=== PATIENT | male | born 1960 | race Caucasian/White ===

== ENCOUNTER 2021-07-27 08:55 | Day surgery (SDC) | payer BC, OTHER ==
[2021-07-25 14:31] VITALS: BMI 39.9
[~2021-07-27 08:55] MED LIST: LACTATED RINGERS 1,000 ML IV SCH
[2021-07-27 09:24] VITALS: TEMP 97.8
[2021-07-27] MEDS ORDERED: LACTATED RINGERS 1,000 ML IV ONE (09:32)
[2021-07-27] MEDS ORDERED: PROPOFOL 10 MG/ML 20 ML VIAL IV ONE (10:16)
[2021-07-27] MEDS ORDERED: LIDOCAINE 1% INJ 10MG/ML (20 ML MDV) ONE (10:16)
--- NOTE | 2021-07-27 10:47 | P.PCN ---
Date of Procedure: 07/27/21 Procedure(s) Performed: BRIEF HISTORY: Patient is a 61-year-old pleasant male scheduled for an elective colonoscopy as a part of screening for colorectal neoplasia. PROCEDURE PERFORMED: Colonoscopy with snare polypectomy. PREOPERATIVE DIAGNOSIS: Screening for colon cancer. IV sedation per Anesthesia. PROCEDURE: After informed consent was obtained, the patient, was brought into the endoscopy unit. IV sedation was administered by Anesthesia under continuous monitoring. Digital rectal examination was normal. Initially the Olympus CF-160 flexible video colonoscope was then inserted in the rectum, gradually advanced into the cecum without any difficulty. Careful examination was performed as the scope was gradually being withdrawn. Ileocecal valve and the appendiceal orifice were visualized and appeared normal. Prep was excellent. Mucosa of the cecum, ascending colon, appeared normal. The transverse colon there was a 7 mm polyp that was removed by snare polypectomy. In the descending colon there was a 1 cm sessile polyp removed by snare polypectomy. Rest of the transverse colon, descending colon, sigmoid colon, and rectum appeared normal. Retroflexion was performed in the rectum and no lesions were seen. The patient tolerated the procedure well. IMPRESSION: 7 mm transverse colon polyp status post polypectomy 1 cm descending colon polyp status post polypectomy RECOMMENDATIONS: Findings of this examination were discussed with the patient as his family. He was advised to follow with the biopsy results. If the biopsies adenoma he can have a repeat colonoscopy in 3 years..
[2021-07-27 11:21] VITALS: PULSE 67; RESP 16
[2021-07-27 11:22] VITALS: BP 116/72
== END 2021-07-27 11:25 | disposition home or self-care (01) ==
LOC: ORWHC2ENDO 08:55
PROVIDERS: ATTEND Internal Medicine Gastroenterology
DX: Z12.11 Encounter for screening for malignant neoplasm of colon (principal); D12.3 Benign neoplasm of transverse colon; D12.4 Benign neoplasm of descending colon
CPT/HCPCS: 45385; 88305; J2001; J2704

== ENCOUNTER → 2023-05-30 | Outpatient (CLI) | payer BC ==
[2023-05-30 14:38] LABS: ALT 292 U/L (10-49); AST 210 U/L (14-35); Albumin 4.5 g/dL (3.8-4.9); Albumin/Globulin Ratio 2.14 Ratio (1.60-3.17); Alkaline Phosphatase 55 U/L (41-126); BUN/Creat Ratio 19.56 Ratio (12.00-20.00); Blood Urea Nitrogen 17.6 mg/dL (9.0-27.0); Calcium 9.6 mg/dL (8.7-10.3); Carbon Dioxide 27.4 mmol/L (21.6-31.8); Chloride 102 mmol/L (96-109); Globulin 2.1 g/dL (1.6-3.3); Glucose 134 mg/dL (70-110); Potassium 4.3 mmol/L (3.5-5.5); Sodium 140 mmol/L (135-145); Total Bilirubin 0.6 mg/dL (0.3-1.2); Total Protein 6.6 g/dL (6.2-8.2)
[2023-05-30 14:58] LABS: INR 4.32 sec (0.93-1.11); Prothrombin Time 42.4 sec (9.9-11.9)
== END | disposition home or self-care (01) ==
LOC: LABWHC1 10:35
PROVIDERS: ATTEND Internal Medicine
DX: I35.0 Nonrheumatic aortic (valve) stenosis (principal); J30.89 Other allergic rhinitis
CPT/HCPCS: 36415; 80053; 85610; 86001

== ENCOUNTER → 2023-06-04 | Outpatient (CLI) | payer BC ==
--- NOTE | 2023-06-04 11:03 | US ---
EXAMINATION TYPE: US abdomen complete DATE OF EXAM: 06/04/2023 COMPARISON: NONE CLINICAL INDICATION: Male, 62 years old with history of R74.01 ELEVATED LFT; Abnormal labs. No pain. Hx CAD. TECHNIQUE: Multiple sonographic images of the abdomen are obtained. FINDINGS: EXAM MEASUREMENTS: Liver Length: 16.5 cm Gallbladder Wall: 0.2 cm Spleen: 10.5 cm Right Kidney: 12.2 x 6.0 x 5.4 cm Left Kidney: 12.3 x 5.8 x 5.8 cm COVER CUTTER NOTES: Limited due to overlying bowel gas Pancreas: Head and tail obscured by overlying bowel gas. The visualized body shows no gross abnormal ity. Liver: Increased attenuation, decreased visualization of vessels suggestive of fatty infiltrate. Ec hogenic in appearance. Gallbladder: No stones or wall thickening Evidence for sonographic Carrera's sign: neg CBD: Obscured by overlying bowel gas Spleen: wnl Right Kidney: No hydronephrosis or masses seen Left Kidney: No hydronephrosis or masses seen Upper IVC: wnl Abd Aorta: No AAA visualized at portions seen IMPRESSION: 1. Exam limitations due to bowel gas. The head and tail of the pancreas are obscured. The bile duct i s also obscured and not assessed on this exam. 2. At least moderate hepatic steatosis. Correlate with LFTs, lipid profile, and patient risk factors. 3. No gallstones.
[2023-06-04 15:11] LABS: % Iron Saturation 21.24 (15.00-50.00); ALT 85 U/L (10-49); AST 48 U/L (14-35); Albumin 4.5 g/dL (3.8-4.9); Albumin/Globulin Ratio 2.14 Ratio (1.60-3.17); Alkaline Phosphatase 59 U/L (41-126); BUN/Creat Ratio 20.44 Ratio (12.00-20.00); Bilirubin, Conjugated 0.21 mg/dL (0.20-0.40); Bilirubin,Unconjugated 0.59 mg/dL (0.20-1.00); Blood Urea Nitrogen 18.4 mg/dL (9.0-27.0); Calcium 9.5 mg/dL (8.7-10.3); Carbon Dioxide 27.4 mmol/L (21.6-31.8); Chloride 104 mmol/L (96-109); Globulin 2.1 g/dL (1.6-3.3); Glucose 127 mg/dL (70-110); Iron 79 UG/DL (65-175); Potassium 4.9 mmol/L (3.5-5.5); Sodium 141 mmol/L (135-145); Total Bilirubin 0.8 mg/dL (0.3-1.2); Total Iron Binding Capacity 372 UG/DL (228-460); Total Protein 6.6 g/dL (6.2-8.2)
[2023-06-04 16:38] LABS: Hepatitis A Antibody IgM Nonreactive; Hepatitis B Core IgM Nonreactive; Hepatitis B Surface Antigen Nonreactive; Hepatitis C IgG Antibody Nonreactive
[2023-06-04 19:28] LABS: INR 3.19 sec (0.93-1.11); Prothrombin Time 31.9 sec (9.9-11.9)
[2023-06-05 04:59] LABS: EBV - VCA IgM <10.0 U/mL (<36.0)
[2023-06-05 11:15] LABS: Smooth Muscle Antibody 8 UNITS (<20)
== END | disposition home or self-care (01) ==
LOC: RADUSWWP 09:35
PROVIDERS: ATTEND Internal Medicine
DX: I35.0 Nonrheumatic aortic (valve) stenosis (principal); K76.0 Fatty (change of) liver, not elsewhere classified; R74.01 Elevation of levels of liver transaminase levels; R14.3 Flatulence
CPT/HCPCS: 36415; 76700; 80053; 80074; 82103; 82248; 82390; 82525; 83516; 83540; 83550; 85610; 86038; 86645; 86665

== ENCOUNTER → 2023-06-19 | Outpatient (CLI) | payer BC ==
[2023-06-19 15:34] LABS: % Iron Saturation 17.43 (15.00-50.00); ALT 46 U/L (10-49); AST 44 U/L (14-35); Albumin 4.4 g/dL (3.8-4.9); Alkaline Phosphatase 58 U/L (41-126); Bilirubin, Conjugated <0.20 mg/dL (0.20-0.40); Bilirubin,Unconjugated >0.40 mg/dL (0.20-1.00); Blood Urea Nitrogen 19.6 mg/dL (9.0-27.0); Calcium 9.2 mg/dL (8.7-10.3); Carbon Dioxide 27.3 mmol/L (21.6-31.8); Chloride 103 mmol/L (96-109); Globulin 2.2 g/dL (1.6-3.3); Glucose 118 mg/dL (70-110); Iron 61 UG/DL (65-175); Potassium 4.3 mmol/L (3.5-5.5); Sodium 140 mmol/L (135-145); Total Bilirubin 0.6 mg/dL (0.3-1.2); Total Iron Binding Capacity 350 UG/DL (228-460); Total Protein 6.6 g/dL (6.2-8.2)
[2023-06-19 17:35] LABS: Hepatitis A Antibody IgM Nonreactive; Hepatitis B Core IgM Nonreactive; Hepatitis B Surface Antigen Nonreactive; Hepatitis C IgG Antibody Nonreactive
[2023-06-19 17:46] LABS: Ceruloplasmin 24.8 mg/dL (20.0-60.0)
[2023-06-19 17:52] LABS: INR 4.27 sec (0.93-1.11); Prothrombin Time 41.9 sec (9.9-11.9)
[2023-06-20 03:56] LABS: EBV - VCA IgM <10.0 U/mL (<36.0)
[2023-06-20 11:56] LABS: Alpha Lactalbumin IgE Class CLASS 0
[2023-06-20 14:34] LABS: Smooth Muscle Antibody 8 UNITS (<20)
== END | disposition home or self-care (01) ==
LOC: LABWHC1 11:07
PROVIDERS: ATTEND Internal Medicine
DX: I35.0 Nonrheumatic aortic (valve) stenosis (principal); R74.01 Elevation of levels of liver transaminase levels
CPT/HCPCS: 36415; 80053; 80074; 82103; 82248; 82390; 82525; 82728; 83516; 83540; 83550; 85610; 86003; 86038; 86645; 86665

== ENCOUNTER → 2023-07-02 | Outpatient (CLI) | payer BC ==
[2023-07-03 03:48] LABS: ALT 43 U/L (10-49); AST 43 U/L (14-35); Albumin 4.3 g/dL (3.8-4.9); Albumin/Globulin Ratio 1.95 Ratio (1.60-3.17); Alkaline Phosphatase 64 U/L (41-126); Blood Urea Nitrogen 18.8 mg/dL (9.0-27.0); Calcium 9.7 mg/dL (8.7-10.3); Chloride 101 mmol/L (96-109); Globulin 2.2 g/dL (1.6-3.3); Glucose 144 mg/dL (70-110); Potassium 4.5 mmol/L (3.5-5.5); Sodium 140 mmol/L (135-145); Total Bilirubin 0.7 mg/dL (0.3-1.2); Total Protein 6.5 g/dL (6.2-8.2)
[2023-07-03 04:59] LABS: INR 4.15 sec (0.93-1.11); Prothrombin Time 40.8 sec (9.9-11.9)
== END | disposition home or self-care (01) ==
LOC: LABWHC1 12:41
PROVIDERS: ATTEND Internal Medicine
DX: I35.0 Nonrheumatic aortic (valve) stenosis (principal)
CPT/HCPCS: 36415; 80053; 85610

== ENCOUNTER → 2023-07-25 | Outpatient (CLI) | payer BC ==
[2023-07-25 19:12] LABS: INR 3.48 sec (0.93-1.11); Prothrombin Time 34.6 sec (9.9-11.9)
== END | disposition home or self-care (01) ==
LOC: LABWHC1 13:17
PROVIDERS: ATTEND Internal Medicine
DX: I35.0 Nonrheumatic aortic (valve) stenosis (principal)
CPT/HCPCS: 36415; 85610

== ENCOUNTER → 2023-08-08 | Outpatient (CLI) | payer BC ==
[2023-08-08 21:28] LABS: INR 5.82 sec (0.93-1.11)
== END | disposition home or self-care (01) ==
LOC: LABWHC1 13:41
PROVIDERS: ATTEND Family Medicine
DX: Z95.2 Presence of prosthetic heart valve (principal)
CPT/HCPCS: 36415; 85610

== ENCOUNTER → 2023-10-06 | Outpatient (CLI) | payer BC ==
[2023-10-06 10:39] LABS: INR 2.5 (<1.2); Partial Thromboplastin Time 33.8 sec (22.0-30.0); Prothrombin Time 25.1 sec (10.0-12.5)
[2023-10-06 15:18] LABS: Basophils # (A) 0.05 X 10*3/uL (0.00-0.10); Basophils % (A) 1.3 %; Eosinophils # (A) 0.22 X 10*3/uL (0.04-0.35); Eosinophils % (A) 5.9 %; HCT 49.7 % (39.6-50.0); HGB 16.4 g/dL (13.0-17.0); Immature Grans, Automated 0 %; Lymphocytes # (A) 1.27 X 10*3/uL (0.90-5.00); Lymphocytes % (A) 33.8 %; MCH 30.3 pg (27.0-32.0); MCV 91.9 FL (80.0-97.0); Mean Platelet Volume 9.9 FL (9.5-12.2); Monocytes # (A) 0.33 X 10*3/uL (0.20-1.00); Monocytes % (A) 8.8 %; NRBC Per 100 WBC 0 X 10*3/uL (0.00-0.01); Neutrophils # (A) 1.89 X 10*3/uL (1.80-7.70); Neutrophils % (A) 50.2 %; Platelet Count 190 X 10*3/uL (140-440); RBC 5.41 X 10*6/uL (4.40-5.60); RDW 13.4 % (11.5-14.5); WBC 3.76 X 10*3/uL (4.50-10.00)
[2023-10-06 15:57] LABS: BUN/Creat Ratio 15.88 Ratio (12.00-20.00); Blood Urea Nitrogen 12.7 mg/dL (9.0-27.0); Carbon Dioxide 25.5 mmol/L (21.6-31.8); Chloride 105 mmol/L (96-109); Chol/HDL Ratio 6.28 Ratio; Glucose 147 mg/dL (70-110); LDL Cholesterol,Calculated 170.9 mg/dL (0.0-131.0); Magnesium 2.1 mg/dL (1.5-2.4); Potassium 4.7 mmol/L (3.5-5.5); Sodium 143 mmol/L (135-145)
[2023-10-06 15:58] LABS: ALT 24 U/L (10-49); AST 40 U/L (14-35); Albumin 4.5 g/dL (3.8-4.9); Albumin/Globulin Ratio 2.14 Ratio (1.60-3.17); Alkaline Phosphatase 53 U/L (41-126); Calcium 9.3 mg/dL (8.7-10.3); Globulin 2.1 g/dL (1.6-3.3); Total Bilirubin 0.7 mg/dL (0.3-1.2); Total Protein 6.6 g/dL (6.2-8.2)
== END | disposition home or self-care (01) ==
LOC: LABWHC1 09:21
PROVIDERS: ATTEND Internal Medicine
DX: Z00.00 Encounter for general adult medical examination without abnormal findings (principal); Z13.89 Encounter for screening for other disorder; I50.9 Heart failure, unspecified; R73.9 Hyperglycemia, unspecified; Z95.2 Presence of prosthetic heart valve
CPT/HCPCS: 36415; 80053; 80061; 83036; 83735; 84443; 85025; 85610; 85730; 87086

== ENCOUNTER → 2023-12-15 | Outpatient (CLI) | payer BC ==
--- NOTE | 2023-12-15 15:56 | XR ---
EXAMINATION TYPE: XR knee 4V RT DATE OF EXAM: 12/15/2023 2:52 PM CLINICAL INDICATION:Male, 63 years old with history of M17.10 UNILATERAL PRIMARY OSTEOARTHRITIS, UNSP ECIF; PHH COMPARISON: None. TECHNIQUE: XR knee 4V RT; examined in Frontal, lateral and oblique projections. [place] patellar perf ormed as well. FINDINGS: No evidence of any acute osseous pathology, soft tissue swelling, or joint effusion is no eba. Tricompartmental osteophyte formation involving the femoral condyles, tibial plateau and patella . Mild joint space narrowing. A fabella is present. IMPRESSION: 1. No acute osseous pathology. 2. [id number] tricompartmental osteoarthritic changes.
== END | disposition home or self-care (01) ==
LOC: RADXRMAIN 14:21
PROVIDERS: ATTEND Internal Medicine
DX: M17.11 Unilateral primary osteoarthritis, right knee (principal)

== ENCOUNTER → 2023-12-18 | Outpatient (CLI) | payer BC ==
--- NOTE | 2023-12-18 16:05 | US ---
EXAMINATION TYPE: US kidneys/renal and bladder DATE OF EXAM: 12/18/2023 COMPARISON: 06/04/23 abdomen comp CLINICAL INDICATION: Male, 63 years old with history of R30.0 DYSURIA; EXAM MEASUREMENTS: Right Kidney: 12.4 x 5.4 x 6.7 cm Left Kidney: 13.3 x 5.5 x 5.3 cm Right Kidney: No hydronephrosis , nephrolithiasis or masses seen Left Kidney: No hydronephrosis, nephrolithiasis or masses seen Bladder: Anechoic; 148ml Bilateral Jets seen: No There is no evidence for hydronephrosis at this point in time. No nephrolithiasis is seen. No kris s are identified. The urinary bladder is anechoic. Bilateral ureteral jets are seen. Renal cortical thickness and echogenicity are maintained. IMPRESSION: No hydronephrosis or nephrolithiasis.
== END | disposition home or self-care (01) ==
LOC: RADUSWWP 15:42
PROVIDERS: ATTEND Internal Medicine
DX: R30.0 Dysuria (principal)
CPT/HCPCS: 76770

== ENCOUNTER 2024-11-03 12:10 | Day surgery (SDC) | payer BC ==
[2024-11-01 15:06] VITALS: BMI 41.3
[2024-11-03 12:48] VITALS: TEMP 97.2
[2024-11-03] MEDS: IV FLUID CONTINUATION 1,000 ML IV ONE (12:48)
[2024-11-03] MEDS: LACTATED RINGERS 1,000 ML IV SCH (12:49)
[2024-11-03] MEDS ORDERED: LIDOCAINE 1% INJ 10MG/ML (20 ML MDV) ONE (13:15)
[2024-11-03] MEDS ORDERED: PROPOFOL 10 MG/ML 20 ML VIAL IV ONE (13:15)
[2024-11-03 13:57] VITALS: BP 120/64; PULSE 67; RESP 18
--- NOTE | 2024-11-03 20:15 | OP ---
OPERATIVE REPORT DATE OF SERVICE : 11/03/2024 REQUESTING PHYSICIAN: Dr. Antonio Gilmore. BRIEF HISTORY: The patient is a 64-year-old pleasant white male scheduled for an elective colonoscopy as a part of screening for prior history of colon polyps. Last colonoscopy was 3 years ago and was noted to have a tubular adenoma. PROCEDURE PERFORMED: Colonoscopy with snare polypectomy. PREOPERATIVE DIAGNOSIS: Screening for history of colon polyps. ANESTHESIA: IV sedation per Anesthesia. DESCRIPTION OF PROCEDURE: After informed consent was obtained from the patient, he was brought into the endoscopy unit. IV conscious sedation was administered by Anesthesia under continuous monitoring. Initial digital rectal examination was normal. Olympus CF-190 video colonoscope was inserted into the rectum, gradually advanced to the cecum. Careful examination was performed. Prep was excellent. Cecum appeared normal. In the ascending colon, there was a 4 mm and 6 mm polyps removed by cold snare polypectomy. Transverse colon, descending colon, sigmoid colon, and rectum appeared normal. Retroflexion was performed in the rectum. No lesions were noted. The patient tolerated the procedure well. IMPRESSION: 1. 3 mm and 6 mm ascending colon polyps, status post cold snare polypectomy. 2. Rest of the colon appeared normal. RECOMMENDATION: Findings of this examination were discussed with the patient as well as his family. He was advised to follow up with the biopsy results. If the biopsy reveals adenoma, he can have a repeat colonoscopy in 5 years. MMODL / IJN: [id number] /
== END 2024-11-03 14:15 | disposition home or self-care (01) ==
LOC: ORWHC2ENDO 12:10
PROVIDERS: ATTEND Internal Medicine Gastroenterology
DX: Z12.11 Encounter for screening for malignant neoplasm of colon (principal); D12.2 Benign neoplasm of ascending colon; I10 Essential (primary) hypertension; E78.5 Hyperlipidemia, unspecified; D86.9 Sarcoidosis, unspecified; Z79.01 Long term (current) use of anticoagulants; Z79.899 Other long term (current) drug therapy; Z86.0100 Personal history of colon polyps, unspecified; Z95.0 Presence of cardiac pacemaker; Z95.2 Presence of prosthetic heart valve
CPT/HCPCS: 88305; 45385; J2003; J2704